=== PATIENT | female | born 2000 | race Caucasian/White ===

== ENCOUNTER 2022-04-04 02:54 | Emergency (ER) | payer BC, MEDICAID ==
[~2022-04-04] VITALS: Ht 162.6 cm; Wt 77.1 kg
[2022-04-04 03:01] VITALS: BP_SYST 112
[2022-04-04] MEDS ORDERED: guaiFENesin/DEXTROMETHORPHAN 10 ML UDC PO ONE (03:30)
[2022-04-04] MEDS ORDERED: DEXAMETHASONE SOD PHOSPHATE 10 MG/ML VIAL IM ONE (03:30)
[2022-04-04] MEDS ORDERED: IPRATROPIUM/ALBUTEROL SULFATE 3 ML AMPUL.NEB (DUONEB) INH ONE (03:30)
[2022-04-04] MEDS ORDERED: PROMETHAZINE HCL/CODEINE 6.25-10 mg/5 mL UDC PO ONE (04:15)
[2022-04-04] MEDS ORDERED: PROMETHAZINE HCL 6.25 MG/5 ML UDC ONE (04:19)
[2022-04-04] MEDS ORDERED: PRED20TA PO (04:45)
[2022-04-04] MEDS ORDERED: PROM5SYR PO ×2 (04:45→10:39)
[2022-04-04] MEDS ORDERED: ALBU2.5V7 INH (04:45)
== END 2022-04-04 04:51 | disposition home or self-care (01) ==
LOC: SED 02:54
DX: J20.9 Acute bronchitis, unspecified (principal); J45.901 Unspecified asthma with (acute) exacerbation; R05.9 Cough, unspecified; Z79.899 Other long term (current) drug therapy; Z20.822 Contact with and (suspected) exposure to COVID-19
CPT/HCPCS: 99284; 71045; 87426; 36415; 94640; 81025; 96372; 87804 ×2; Q0169; J1100